=== PATIENT | female | born 1965 | race Caucasian/White ===

== ENCOUNTER 2022-06-20 22:48 | Emergency (ER) | payer OTHER, SELFPAY ==
--- NOTE | ~2022-06-20 | XR_ITS ---
EXAMINATION: XR wrist LT min 3V DATE: 06/20/2022 23:21 INDICATION: Left wrist injury and pain. TECHNIQUE: 4 views of left wrist were obtained. COMPARISON: None. FINDINGS: Bone alignment is normal. No fracture. There is mild osteoarthritis of first carpometacarpa l joint. IMPRESSION: 1. Mild osteoarthritis of first carpometacarpal joint. Reviewed, dictated and finalized at location A.
[2022-06-20 22:52] VITALS: BP 162/89; PULSE 99; RESP 20; TEMP 36.6; O2SAT 99
[2022-06-20] MEDS: TETANUS,DIPHTHERIA,AC PERTUSSIS ADULT (0.5 ML) BOOSTRIX IM (23:06)
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
[2022-06-20 23:38] VITALS: PULSE 88; RESP 18; O2SAT 97
== END 2022-06-20 23:39 | disposition home or self-care (01) ==
PROVIDERS: Emergency Provider Emergency Medicine; PCP Family Medicine
DX: S63.502A Unspecified sprain of left wrist, initial encounter (principal); S40.022A Contusion of left upper arm, initial encounter; S40.021A Contusion of right upper arm, initial encounter; V49.40XA Driver injured in collision with unspecified motor vehicles in traffic accident, initial encounter; E53.8 Deficiency of other specified B group vitamins; F17.210 Nicotine dependence, cigarettes, uncomplicated; Z23 Encounter for immunization
CPT/HCPCS: 73110; 90471; 90715; 99283

== ENCOUNTER 2022-10-11 07:33 | Outpatient (CLI) | payer OTHER, SELFPAY ==
--- NOTE | ~2022-10-11 | MR_ITS ---
EXAMINATION: MR brain/brain stem wo con DATE: 10/11/2022 08:20 INDICATION: Migraine headache. Not intractable without status migrainosus. TECHNIQUE: Magnetic resonance imaging (MRI) of the brain and brainstem was performed without intraven ous contrast. COMPARISON: Head CT 07/20/2013 FINDINGS: There are scattered areas of nonspecific increased T2-weighted signal intensity in the cere bral white matter, which is within normal limits for the patient's age. There is no intracranial hemo rrhage, acute infarction, or abnormal intracranial mass lesion. The ventricles are normal in size. Th e orbits are normal. There is mild mucosal thickening in the paranasal sinuses. The mastoid air cells are normal. IMPRESSION: 1. Normal aging brain. Reviewed, dictated and finalized at location A. ENT NAVIGATOR IMPRESSION: 1. Normal aging brain.
== END 2022-10-11 07:34 ==
PROVIDERS: Visit Provider Psychiatry & Neurology Neurology
DX: G43.809 Other migraine, not intractable, without status migrainosus (principal)
CPT/HCPCS: 70551

== ENCOUNTER → 2022-11-05 11:57 | Outpatient (CLI) | payer OTHER, SELFPAY ==
--- NOTE | ~2022-11-05 | XR_ITS ---
EXAMINATION:XR cervical spine 4-5V DATE: 11/05/2022 12:23 INDICATION: Neck pain TECHNIQUE: AP, lateral, lateral swimmers and odontoid views of the cervical spine are provided. COMPARISON: None FINDINGS: There are 2 mm of anterolisthesis of C3 on C4. The odontoid process is intact. No fracture is identified. The vertebral body heights are maintained. There is moderate loss of intervertebral di sc space height at C3-4 and C4-5 and mild loss of intervertebral disc space height at C3-4 and C6-7. There is multilevel moderate facet and uncovertebral joint osteoarthritis. Small degenerative osteoph ytes project from the anterior endplates of multiple vertebral bodies. Prevertebral soft tissues are normal. IMPRESSION: 1. Moderate cervical spondylosis without acute findings. Reviewed, dictated and finalized at location B. LIGHT OPERATOR
== END ==
PROVIDERS: PCP Family Medicine; Visit Provider Family Medicine
DX: M47.812 Spondylosis without myelopathy or radiculopathy, cervical region (principal)
CPT/HCPCS: 72050

== ENCOUNTER 2024-01-14 07:08 | Emergency (ER) | payer SELFPAY ==
[2024-01-14 07:15] VITALS: BP 115/69; PULSE 66; RESP 16; TEMP 36.6; O2SAT 99
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
[2024-01-14 08:16] LABS: Alveolar/Arterial O2 Gradient 0.9 mmHg; Base Excess ABG 3.1 mEq/l (+/-2.0); Carboxyhemoglobin 1.2 % THb (0-2.0); Fractional Inspired Oxygen 21 %; HCO3 ABG 25.6 mEq/l (22.0-26.0); Methemoglobin ABG 0.3 %THb (0-1.5); Oxygen Content ABG 18.5 %vol (16.0-22.0); Oxygen Saturation ABG 98.4 % (95.0-100.0); Oxyhemoglobin 96.5 % THb (90.0-100.0); PCO2 ABG 32.6 mmHg (35.0-45.0); PO2 ABG 109.8 mmHg (80.0-100.0); PO2 FiO2 Ratio Arterial Blood 5.23 %; Total Hemoglobin 13.5 g/dL (12.0-18.0)
[2024-01-14 08:17] LABS: Site Drawn RIGHT BRACHIAL; pH ABG 7.513 (7.350-7.450)
[2024-01-14] MEDS: SODIUM CHLORIDE 0.9% IV 1,000 ML 999 ML IV CONT (08:35)
[2024-01-14] MEDS: KETOROLAC 15 MG/ML VIAL (*BKC) IV PUSH (08:36)
[2024-01-14] MEDS: diphenhydrAMINE HCl INJ 50 MG/ML VIAL 25 MG IV PUSH (08:39)
[2024-01-14] MEDS: PROCHLORPERAZINE EDISYLATE 10 MG/2 ML VIAL IV PUSH (08:41)
[2024-01-14] MEDS: MAGNESIUM SULF 1 GM/D5W 100 ML 1 GM/100 ML BAG IVPB (09:49)
[2024-01-14] MEDS: predniSONE 20 MG TABLET PO (09:49)
[2024-01-14 10:30] VITALS: BP 122/70; PULSE 70; RESP 16; O2SAT 100
[2024-01-14] MEDS: ACETAMINOPHEN 500 MG TABLET 1000 MG PO (10:40)
[2024-01-14] MEDS: HALOPERIDOL LACTATE 5 MG/ML VIAL 2.5 MG IV PUSH (10:40)
== END 2024-01-14 11:50 | disposition home or self-care (01) ==
PROVIDERS: Emergency Provider Student in an Organized Health Care Education/Training Program; PCP Family Medicine
DX: R51.9 Headache, unspecified (principal); F17.210 Nicotine dependence, cigarettes, uncomplicated; Z86.16 Personal history of COVID-19; Z90.710 Acquired absence of both cervix and uterus
CPT/HCPCS: 36600; 82375; 82805; 83050; 96361; 96365; 96375; 99284; A9270; J0780; J1200; J1630; J1885; J3475; J7030; J7512

== ENCOUNTER 2024-09-17 11:15 | Emergency (ER) | payer SELFPAY ==
[2024-09-17 13:09] VITALS: BP 112/65; PULSE 79; RESP 16; TEMP 37.2; O2SAT 100
[2024-09-17 13:44] LABS: EDCOVIDSCREEN Negative (Negative); EDINFLUASCREEN Negative (Negative); EDINFLUBSCREEN Negative (Negative); EDSTREPNEGPOS1 Negative (Negative)
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
== END 2024-09-17 14:07 | disposition home or self-care (01) ==
PROVIDERS: Emergency Provider Nurse Practitioner; PCP Family Medicine
DX: J06.9 Acute upper respiratory infection, unspecified (principal); Z20.822 Contact with and (suspected) exposure to COVID-19; F17.210 Nicotine dependence, cigarettes, uncomplicated; E53.8 Deficiency of other specified B group vitamins
CPT/HCPCS: 87081; 87426; 87804; 87880; 99213; G0463

== ENCOUNTER 2024-11-12 09:19 | Outpatient (CLI) | payer BC, SELFPAY ==
--- NOTE | ~2024-11-12 | XR_ITS ---
EXAMINATION: XR knee LT 3V DATE: 11/12/2024 10:08 INDICATION: Left knee pain TECHNIQUE: Standing AP, lateral and sunrise views of the left knee were obtained. COMPARISON: None. FINDINGS: Alignment is normal. No fracture. Joint spaces are normal. No joint effusion/layering lipohemarthros is. Soft tissues are unremarkable. IMPRESSION: 1. Negative left knee radiographs. Reviewed, dictated and finalized at location A. DENTIAL SALES CONSULTANT
--- NOTE | ~2024-11-12 | XR_ITS ---
EXAMINATION: XR foot RT min 3V DATE: 11/12/2024 10:08 INDICATION: Right foot pain TECHNIQUE: Dorsoplantar, two oblique and lateral views of the right foot were obtained. COMPARISON: None. FINDINGS: Bone alignment is normal. There is flattening of the articular surface of the head of the second meta tarsal consistent with chronic osteonecrosis/Freiberg's infraction. Mild osteoarthritis of the first and second metatarsophalangeal and a few interphalangeal joints. Soft tissues are unremarkable. IMPRESSION: 1. Chronic osteonecrosis with collapse of the articular surface at the head of the second metatarsal. 2. Mild polyarticular osteoarthritis in the right forefoot. Reviewed, dictated and finalized at location A. R TRANSFORMER ASSEMBLER
--- NOTE | ~2024-11-12 | XR_ITS ---
EXAMINATION: XR lumbar spine 2-3V DATE: 11/12/2024 10:08 INDICATION: Low back pain TECHNIQUE: Anteroposterior and lateral views of the lumbar spine, and cone-down lateral view of the l umbosacral junction were obtained. COMPARISON: CT dated 10/24/2009 FINDINGS: 8 degree lumbar dextrocurvature. Sagittal alignment is normal. Chronic minimal anterior wedging at L1 and L2. Moderate disc height loss at L1-L2, L4-L5 and L5-S1. Mild to moderate disc height loss at L3 -L4. Mild to moderate lumbar facet osteoarthritis. Mild bilateral sacroiliac osteoarthritis. Normal b owel gas pattern. IMPRESSION: 1. 8 degrees lumbar dextrocurvature with mild spondylosis. Reviewed, dictated and finalized at location A. NSIC EXAMINER
--- NOTE | ~2024-11-12 | XR_ITS ---
EXAMINATION: XR foot LT min 3V DATE: 11/12/2024 10:08 INDICATION: Left foot pain TECHNIQUE: Dorsoplantar, two oblique and lateral views of the left foot were obtained. COMPARISON: None. FINDINGS: Alignment is normal. No fracture. Mild osteoarthritis at the first metatarsophalangeal and a few inte rphalangeal joints. No erosions to suggest inflammatory arthritis. Small plantar calcaneal spur. Soft tissues are unremarkable. IMPRESSION: 1. Mild polyarticular osteoarthritis in the left forefoot. Reviewed, dictated and finalized at location A. HOUSE OPERATOR
--- NOTE | ~2024-11-12 | XR_ITS ---
EXAMINATION: XR hip LT min 2V DATE: 11/12/2024 10:08 INDICATION: Left hip pain TECHNIQUE: Anteroposterior and cross-table lateral views of the left hip were obtained. COMPARISON: None. FINDINGS: Alignment is normal. No fracture. Joint spaces are normal. Moderate spondylosis in the visualized low er lumbar spine. Soft tissues are unremarkable. IMPRESSION: 1. Unremarkable left hip. Moderate lower lumbar spondylosis. Reviewed, dictated and finalized at location A. TICS MECHANIC
== END 2024-11-12 09:20 | disposition home or self-care (01) ==
PROVIDERS: PCP Family Medicine; Visit Provider Family Medicine
DX: M25.562 Pain in left knee (principal); M25.552 Pain in left hip; M47.896 Other spondylosis, lumbar region; M19.071 Primary osteoarthritis, right ankle and foot; M19.072 Primary osteoarthritis, left ankle and foot
CPT/HCPCS: 72100; 73502; 73562; 73630

== ENCOUNTER 2024-11-26 08:16 | Emergency (ER) | payer SELFPAY ==
--- OUTSIDE RECORDS SUMMARY | 2024-11-26 08:18 | XMS_ITS | Continuity of Care Document ---
Author Organization [facility] Address [address] [place] [address] Phone Care Team Providers Care Director Field Services Name Role Phone Lee Gill MD Unavailable Unavailable Allergies, Adverse Reactions, Alerts Substance Reaction Status Criticality No Known Allergies Active No Inform ation Medications Medication Instructions Dosage Effective Dates (start - stop) Status Comments Tylenol-Codeine #3 300 mg-30 mg tablet take 1 tablet by oral route every 6 hours as needed - Active Procedures Procedure Date Office/outpatient Visit, Est Revision Of Iris Special Eye Evaluation No Charge Orbscan Revision Of Iris Eye Exam, New Patient Eye Exam Established Pt No Charge Contact Lens Check CL Replacement - Vistakon Disp W/BW Soft Miscellaneus Tax - Medical BF Plastic Sphcyl [place] To +/-4d .12-2d Frames Deluxe Tax - Medical Eye Exam & Treatment Refraction Advance Directives Directive Yes / No Effective Date File Name No Information Encounters Encounter Description Practice Location Reason(s) For Visit Diagnoses Date Provider Providers Copied on Encounter Office/outpat ient Visit, Est [facility], [address], [place], [place], [address], [place] tel:[phone] [facility] Professional YAG PI PO (12/17/18) (chief complaint) Anatomical narrow angle of both eyes January- 3-201 9 [facility] [address] [facility], [facility] [place], [address], [place]. tel:[phone] Referring Provider: Thomas Aviles OD, [facility] [address] [place], [address]. tel:[phone] [facility], [address], [place], [place], [address], [place] tel:[phone] [facility] Professional yag pi OS (chief complaint) Anatomical narrow angle of both eyes Nov-2 9-201 9 [facility] [address] [facility], [facility] [place], [address], [place]. tel:[phone] Referring Provider: Thomas Aviles OD, [facility] [address] [place], [address]. tel:[phone] [facility], [address], [place], [place], [address], [place] tel:[phone] [facility] Professional narrow angle evaluation (chief complaint) Anatomical narrow angle of both eyes Nov- 5-201 9 Gill Lee. [address] [facility], [facility] [place], [address], [place]. tel:[phone] Referring Provider: Thomas Aviles OD, [facility] [address] [place], [address]. tel:[phone] [facility], [address], [place], [place], [address], [place] [phone] No Information 7-200 9 Kahn OD Eliot. [address], [address], [place], [address], [place]. tel:[phone] [facility], [address] [place] [address] [address], [place], [place], [address], [place] tel:[phone] [facility] No Information 3-200 8 Kahn OD Eliot. [facility] [facility] [address], [place], [address], [place]. tel:[phone] [facility], [address] [place] [address] [address], [place], [place], [address], [place] tel:[phone] [facility] No Information [address] [facility] . [address] [facility], [address], [place], [place], [address], [place]. tel:[phone] Referring Provider: Eliot Townsend, [address] [place] [address] [address], [place], [place], [facility]. tel:[phone] sulting Provider: Shiv Yañez, [address] [place], [place] [address]ate [facility], [place], [place], [facility]. tel:[phone] [facility], [address] [place] [address] [address], [place], [place], [address], [place] tel:[phone] [facility] No Information 200 7 Kahn OD Eliot. [address] [place] [address] , [address], [place], [address], . tel:[phone] Family History Family Member Type Diagnosis Age At Onset No Information Payers Payer name Insurance type Covered democrat ID Authormiguel dumont(s) [facility] [id number] Social History Type Description Quantity Date Captured Comments Alcohol Use Details No Caffeine Use Details Tobacco Use Status Occasional cigarette smoker Smoking Status Current some day smoker Smoking Tobacco Use Details Cigarette: No Details Available Cigarette: No Details Available Sex Female Chief Complaint And Reason For Visit From encounter dated '01/31/2019 11:15'. OLIVIA AGUERO PO (12/17/18) (chief complaint). Description: The 53 year old female presents for evaluation of YAG PI PO (12/17/18) in the left eye. Pt reports OS seems to be doing fine and no pain or irritation today, OU. Pt reports she is using AFT PRN OU and no pain, irritation or discomfort today, OU. Reason For Referral Reason For Referral No Information Plan Of Treatment Date Type Action Status Goal Tobacco cessation counseling completed Goal Tobacco cessation counseling completed Goal Tobacco cessation counseling completed Patient Education Learning About Your Eye s completed Patient Education Learning About Your Eye s completed History Of Present Illness Encounter Date Complaint History Of Prese nt Illness YAG PI PO (12/17/18) The 53 year old female presents for evaluation of YAG PI PO (12/17/18) in the left eye. Pt reports OS seems to be doing fine and no pain or irritation today, OU. Pt reports she is using AFT PRN OU and no pain, irritation or discomfort today, OU. yag pi OS The 53 year old female presents for a YAG PI OS and a 2 week post op YAG PI OD. Patient wore glasses today. Patient states eyes are doing ok. narrow angle evaluation The 52 y ear old female presents for a narrow angle evaluation ou per Dr. Aviles. Patient wore contacts into the office today. Patient states she is having a problem with her right contact and will go back to see Dr. Aviles. Functional Status Date Functional Assessmen t No Information Instructions Date Instruction Additional Infor alee Impression/Plan Impression/Plan Impression/Plan Surgery advised: ris ks, benefits, alternatives discussed. Related to Anatomical narrow angle of both eyes Written educational material giv en. Related to Anatomical narrow angle of both eyes Assessments Type Assessment Date assessment Anatomical narrow angle of both eyes Patient Care Teams Name Effective Dates (start - stop) Status Members No Information
--- OUTSIDE RECORDS SUMMARY | 2024-11-26 08:18 | XMS_ITS | Clinical Summary ---
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
--- OUTSIDE RECORDS SUMMARY | 2024-11-26 08:18 | XMS_ITS | Encounter Summary ---
Author Organization [facility] Address 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
[2024-11-26 08:21] VITALS: BP 126/92; PULSE 73; RESP 16; TEMP 36.7; O2SAT 98
--- OUTSIDE RECORDS SUMMARY | 2024-11-26 09:38 | XMS_ITS | Clinical Summary ---
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
--- OUTSIDE RECORDS SUMMARY | 2024-11-26 09:38 | XMS_ITS | Continuity of Care Document ---
Author Organization [facility] Address [address] [place] [address] Phone Care Team Providers Care Sheet Metal Smith Name Role Phone Lee Gill MD Unavailable [...] Miscellaneus Tax - Medical BF Plastic Sphcyl [place] To +/-4d .12-2d Frames Deluxe Tax - Medical Eye Exam & Treatment Refraction Advance Directives Directive Yes / No Effective Date File Name No Information Encounters Encounter Description Practice Location Reason(s) For Visit Diagnoses Date Provider Providers Copied on Encounter Office/outpat ient [facility] [address], [place], [place], [address], [place] tel:[phone] [facility] Professional YAG PI PO (12/17/18) (chief complaint) Anatomical narrow angle of both eyes January- 3-201 9 [facility] [address] [facility], [facility] [place], [address], [place]. tel:[phone] Referring Provider: Thomas Aviles OD, [facility] [address] [place], [address]. tel:[phone] [facility], [address], [place], [place], [address], [place] tel:[phone] [facility] Professional yag pi OS (chief complaint) Anatomical narrow angle of both eyes Nov-2 9-201 9 [facility] [address] [facility], [facility] [place], [address], [place]. tel:[phone] Referring Provider: Thomas Aviles OD, [facility] [address] [place], [address]. tel:[phone] [facility], [address], [place], [place], [address], [place] tel:[phone] [facility] Professional narrow angle evaluation (chief complaint) Anatomical narrow angle of both eyes Nov- 5-201 9 Gill Lee. [address] [facility], [facility] [place], [address], [place]. tel:[phone] Referring Provider: Thomas Aviles OD, [facility] [address] [place], [address]. tel:[phone] [facility], [address], [place], [place], [address], [place] [phone] [facility] No Information 7-200 9 Kahn OD Eliot. [address], [address], [place], [address], [place]. tel:[phone] [facility], [address] [place] [address] [address], [place], [place], [address], [place] tel:[phone] [facility] No Information 3-200 8 Kahn OD Eliot. [facility] [facility] [address], [place], [address], [place]. tel:[phone] [facility], [address] [place] [address] [address], [place], [place], [address], [place] tel:[phone] [facility] No Information [address] [facility] . [address] [facility], [address], [place], [place], [address], [place]. tel:[phone] Referring Provider: Eliot Townsend, [address] [place] [address] [address], [place], [place], [facility]. tel:[phone] sulting Provider: Shiv Yañez, [address] [place], [place] [address]ate [facility], [place], [place], [facility]. tel:[phone] [facility], [address] [place] [address] [address], [place], [place], [address], [place] tel:[phone] [facility] No Information 200 7 Kahn OD Eliot. [address] [place] [address] , [address], [place], [address], . tel:[phone] Family History Family Member Type Diagnosis Age At Onset No Information Payers Payer name Insurance type Covered republican ID Authormiguel dumont(s) [facility] [id number] Social History Type Description Quantity Date Captured [...]
--- OUTSIDE RECORDS SUMMARY | 2024-11-26 09:38 | XMS_ITS | Encounter Summary ---
Author Organization [facility] Address 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
[2024-11-26 09:48] VITALS: BP 119/54; PULSE 69; RESP 18; O2SAT 98
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
[2024-11-26] MEDS: KETOROLAC (*BKC) 60 MG/2 ML VIAL IM (10:17)
[2024-11-26] MEDS: CYCLOBENZAPRINE HCL 10 MG TABLET PO (10:18)
[2024-11-26] MEDS: HYDROcodone/acetaminophen (*CRX) 5-325 MG TABLET 1 TAB PO (10:18)
[2024-11-26 10:26] VITALS: BP 107/69; PULSE 69; RESP 18; O2SAT 99
== END 2024-11-26 10:28 | disposition home or self-care (01) ==
PROVIDERS: Emergency Provider Emergency Medicine; PCP Family Medicine
DX: M54.42 Lumbago with sciatica, left side (principal); E78.2 Mixed hyperlipidemia; F41.8 Other specified anxiety disorders; E53.8 Deficiency of other specified B group vitamins; F17.210 Nicotine dependence, cigarettes, uncomplicated
CPT/HCPCS: 96372; 99283; A9270; J1885

== ENCOUNTER 2024-12-07 09:38 | Emergency (ER) | payer SELFPAY ==
--- NOTE | ~2024-12-07 | CT_ITS ---
CT lumbar spine wo con Ordering provider: Matthew Dc History: 58 years Female with . sciatica . Comparison: None. Technique: CT lumbar spine without contrast. Automated exposure control and iterative reconstruction technique were employed. The dose-length product was 297.01 mGy-cm. FINDINGS: VERTEBRAE: Normal height and alignment. No subluxation or visible acute fracture. Degenerative change s of the spine. DISC SPACES: Narrowing of the disc L1-2, L3-L4, L4-L5 and L5-S1. T12-L1: No stenosis. L1-L2: No stenosis. Diffuse disc bulge. L2-L3: No stenosis. Diffuse disc bulge. Soft tissue density seen lateral to the left foramen which measures 1.1 cm which may be abutting the nerve root. MRI evaluation advised. L3-L4: No stenosis. Right facet joint disease. Diffuse disc bulge with bilateral narrowing of the for dane and nerve root compression. L4-L5: No stenosis. Diffuse disc bulge with osteophyte formation. Bilateral narrowing of the foramin a with nerve root compression L5-S1: No stenosis. Mild diffuse disc bulge with osteophytes PARASPINOUS SOFT TISSUES: Mild atheromatous disease of the abdominal aorta. IMPRESSION: Multilevel degenerative disc disease. Multilevel disc bulges with variable degrees of intervertebral foraminal narrowing and with compressi on. Possible soft tissue density lateral to the left foramina at the level of L2-L3. MRI is advised for f urther evaluation. Reviewed, dictated and finalized at location A. IMPRESSION: Multilevel degenerative disc disease. Multilevel disc bulges with variable degrees of intervertebral foraminal narrow ing and with compression. Possible soft tissue density lateral to the left foramina at the level of L2-L3 . MRI is advised for further evaluation.
[2024-12-07 09:41] VITALS: BP 112/60; PULSE 83; RESP 14; TEMP 36.3; O2SAT 99
--- OUTSIDE RECORDS SUMMARY | 2024-12-07 10:44 | XMS_ITS | Encounter Summary ---
Author Organization [facility] Address 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
--- OUTSIDE RECORDS SUMMARY | 2024-12-07 10:44 | XMS_ITS | Clinical Summary ---
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
--- OUTSIDE RECORDS SUMMARY | 2024-12-07 10:44 | XMS_ITS | Continuity of Care Document ---
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 Role Phone Lee Gill MD Unavailable [...] Miscellaneus Tax - Medical BF Plastic Sphcyl [place] To +/-4d .12-2d Frames Deluxe Tax - Medical Eye Exam & Treatment Refraction Advance Directives Directive Yes / No Effective Date File Name No Information Encounters Encounter Description Practice Location Reason(s) For Visit Diagnoses Date Provider Providers Copied on Encounter Office/outpat ient Visit, Est [facility], [address], [place], [place], [address], [place] tel:[phone] [facility] Professional YAG PI PO (12/17/18) (chief complaint) Anatomical narrow angle of both eyes January- 3-201 9 [facility] [address] [facility], [facility] [place], [address], [place]. tel:[phone] Referring Provider: Thomas Aviles OD, [facility] [address] [place], [address]. tel:[phone] [facility], [address], [place], [place], [address], [place] tel:[phone] [facility] Professional yag pi OS (chief complaint) Anatomical narrow angle of both eyes Nov-2 9-201 9 [facility] [address] [facility], [facility] [place], [address], [place]. tel:[phone] Referring Provider: Thomas Aviles OD, [facility] [address] [place], [address]. tel:[phone] [facility], [address], [place], [place], [address], [place] tel:[phone] [facility] Professional narrow angle evaluation (chief complaint) Anatomical narrow angle of both eyes Nov- 5-201 9 Gill Lee. [address] [facility], [facility] [place], [address], [place]. tel:[phone] Referring Provider: Thomas Aviles OD, [facility] [address] [place], [address]. tel:[phone] [facility], [address], [place], [place], [address], [place] [phone] No Information 7-200 9 Kahn OD Eliot. [address], [address], [place], [address], [place]. tel:[phone] [facility], [address] [place] [address] [address], [place], [place], [address], [place] tel:[phone] [facility] No Information 3-200 8 Kahn OD Eliot. [facility], [place], [address], [place]. tel:[phone] [facility], [address] [place] [address] [address], [place], [place], [address], [place] tel:[phone] [facility][note 2] No Information [address] [facility] . [address] [facility], [address], [place], [place], [address], [place]. tel:[phone] Referring Provider: Eliot Townsend, [address] [place] [address] [address], [place], [place], [facility]. tel:[phone] sulting Provider: Shiv Yañez, [address] [place], [place] [address]ate [facility], [place], [place], [facility]. tel:[phone] [facility], [address] [place] [address] [address], [place], [place], [address], [place] tel:[phone] [facility][note 2] No Information 200 7 Kahn OD Eliot. [address] [place] [address] , [address], [place], [address], . tel:[phone] Family History Family Member Type Diagnosis Age At Onset No Information Payers Payer name Insurance type Covered libertarian ID Authormiguel dumont(s) [facility] [id number] Social History Type Description Quantity Date Captured [...]
[2024-12-07] MEDS: HYDROmorphone HCL INJ (*CRX) 1 MG/ML SYR 0.5 MG IV PUSH (13:55)
[2024-12-07] MEDS: CYCLOBENZAPRINE HCL 10 MG TABLET PO (13:56)
[2024-12-07 13:58] VITALS: BP 114/51; PULSE 90; RESP 16; TEMP 36.1; O2SAT 96
--- OUTSIDE RECORDS SUMMARY | 2024-12-07 14:03 | XMS_ITS | Encounter Summary ---
Author Organization [facility] Address 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
--- OUTSIDE RECORDS SUMMARY | 2024-12-07 14:03 | XMS_ITS | Clinical Summary ---
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
--- OUTSIDE RECORDS SUMMARY | 2024-12-07 14:03 | XMS_ITS | Continuity of Care Document ---
Author Organization [facility] Address [address] [place] [address] Phone Care Team Providers Care Consumer Loan Manager Name Role Phone Lee Gill MD Unavailable [...] Miscellaneus Tax - Medical BF Plastic Sphcyl [place] To +/-4d .12-2d Frames Deluxe Tax - Medical Eye Exam & Treatment Refraction Advance Directives Directive Yes / No Effective Date File Name No Information Encounters Encounter Description Practice Location Reason(s) For Visit Diagnoses Date Provider Providers Copied on Encounter Office/outpat ient Visit, Est [facility], [address], [place], [place], [address], [place] tel:[phone] [facility] Professional YAG PI PO (12/17/18) (chief complaint) Anatomical narrow angle of both eyes January- 3-201 9 [facility] [address] [facility] [place], [place], [address], [place]. tel:[phone] Referring Provider: Thomas Aviles OD, [facility] [address] [place], [address]. tel:[phone] [facility], [address], [place], [place], [address], [place] tel:[phone] [facility] Professional yag pi OS (chief complaint) Anatomical narrow angle of both eyes Nov-2 9-201 9 [facility] [address] [facility], [facility] [place], [place], [address], [place]. tel:[phone] Referring Provider: Thomas Aviles OD, [facility] [address] [place], [address]. tel:[phone] [facility], [address], [place], [place], [address], [place] tel:[phone] [facility] Professional narrow angle evaluation (chief complaint) Anatomical narrow angle of both eyes Nov- 5-201 9 Gill Lee. [address] [facility], [facility] [place], [address], [place]. tel:[phone] Referring Provider: Thomas Aviles OD, [facility] [address] [place], [address]. tel:[phone] [facility], [address], [place], [place], [address], [place] [phone] No Information 7-200 9 Kahn OD Eliot. [address], [address], [place], [address], [place]. tel:[phone] [facility], [address] [place] [address] [address], [place], [place], [address], [place] tel:[phone] [facility] No Information 3-200 8 Kahn OD Eliot. [facility], [place], [address], [place]. tel:[phone] [facility], [address] [place] [address] [address], [place], [place], [address], [place] tel:[phone] [facility] No Information [address] [facility] . [address] [facility], [address], [place], [place], [address], [place]. tel:[phone] Referring Provider: Eliot Townsend, [address] [place] [address] [address], [place], [place], [facility]. tel:[phone] sulting Provider: Shiv Yañez, [address] [place], [place] [address]ate [facility], [place], [facility]. tel:[phone] [facility], [address] [place] [address] [address], [place], [place], [address], [place] tel:[phone] [facility] No Information 200 7 Kahn OD Eliot. [address] [place] [address] , [address], [place], [address], . tel:[phone] Family History Family Member Type Diagnosis Age At Onset No Information Payers Payer name Insurance type Covered democrat ID Authormiguel dumont(s) [facility] [id number] Social History Type Description Quantity Date Captured [...]
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
[2024-12-07] MEDS: predniSONE 20 MG TABLET 60 MG PO (14:23)
== END 2024-12-07 15:04 | disposition home or self-care (01) ==
PROVIDERS: Emergency Provider Emergency Medicine; PCP Family Medicine
DX: M54.50 Low back pain, unspecified (principal); F17.210 Nicotine dependence, cigarettes, uncomplicated; G89.29 Other chronic pain; F41.9 Anxiety disorder, unspecified; F32.A Depression, unspecified
CPT/HCPCS: 72131; 96374; 99284; A9270; J1171; J7512